=== PATIENT | male | born 1970 | race Caucasian/White ===

== ENCOUNTER → 2017-09-22 | Outpatient (CLI) | payer MEDICARE, OTHER | END | disposition home or self-care (01) | LOC: KCIC MRI 15:11 | DX: M48.061 Spinal stenosis, lumbar region without neurogenic claudication (principal); M51.36 Other intervertebral disc degeneration, lumbar region; M51.26 Other intervertebral disc displacement, lumbar region; M79.604 Pain in right leg | CPT/HCPCS: 72148 ==

== ENCOUNTER → 2018-11-13 | Outpatient (CLI) | payer MEDICARE, OTHER ==
[2018-10-19 11:45] VITALS: BP 121/71
[~2018-11-13] MED LIST: ALBU2.5V14 NEB; ALBU2.5V5 NEB; ALFU10TA PO; ASPI325T8 PO; BACL10TA PO; CYCL10TA2 PO; DICL50TA4 PO; DULO20CA PO; FLUT1DIS5 IH; FURO-68 PO; GABA600T7 PO; LISI-130 PO; METH454P2 PO; MONT10TA49 PO; NAPR-677 PO; OMEP20TA63 PO; OMEP40CA5 PO; OXYC10TA PO; OXYC15TA PO; POLY119P4 PO; SIMV20TA3 PO; SUCR1TAB35 PO; TIOT18CA IH; TRAZ-86 PO
--- NOTE | 2018-11-13 12:52 | RAD ---
MR#: [id number] Date of Study: 11/13/2018 Ordering Physician: TERRELL MUJICA, Referring Physician: TERRELL MUJICA, Tech: Hood Jaime MBA, RDMS, RVT, RDCS, RTR APPROVED REPORT Patient Location : OUT-PATIENT Indications venous insufficiency Findings Limited Kim scale images of the bilateral lower extremity SFJ are grossly unremarkable. The R GSV measures 6.7 mm and does not reflux The L GSV measures 7.5 mm and does not reflux. Bilateral lesser saphenous veins do not show any evidence of reflux. Critical Notification Critical Value: No <Conclusion> 1. No significant reflux in the bilateral greater and lesser saphenous veins Signed by : Cooper Mcmahan, Electronically Approved : 11/13/2018 12:52:18
== END | disposition home or self-care (01) ==
LOC: US 10:25
PROVIDERS: ATTEND Internal Medicine Cardiovascular Disease
DX: I87.2 Venous insufficiency (chronic) (peripheral) (principal)
CPT/HCPCS: 93970

== ENCOUNTER → 2019-07-17 | Outpatient (CLI) | payer MEDICARE, OTHER ==
[2018-10-19 11:45] VITALS: BP 121/71
[~2019-07-17] MED LIST changes: +OMEP40CA45 PO; -OMEP40CA5 PO; +SIMV20TA18 PO; -SIMV20TA3 PO; +TRAZ-123 PO; -TRAZ-86 PO; +ZOLPIDEM 5 MG TABLET. PO ONE
--- NOTE | 2019-07-18 15:56 | SLEEP ---
DATE OF STUDY: 07/17/2019 REFERRING PHYSICIAN: Arnold Sellers MD PRIMARY CARE PHYSICIAN: CAR Lara The patient is a 49-year-old who weighs 360 pounds with a BMI of 48. The patient underwent diagnostic sleep study performed at [facility]. During the night study, the patient spent 179 minutes in bed and slept for 88 minutes with a low sleep efficiency of 49%. Sleep latency was 40 minutes with an absent REM sleep. Sleep architecture showed increased stage 1 and stage 2 sleep, normal slow wave and absent REM sleep. During the night study, the patient had 3 obstructive apneas, no mixed or central apneas and 36 hypopneas. The patient's AHI was 27 per hour. No supine or REM sleep was observed. EKG monitoring revealed an average heart rate of 90 beats per minute. It was consistent with LVH. No clinically significant PLM seen. Nocturnal oximetry study revealed a mean oxygen saturation of 92% with the lowest of 85%. A 66% of time oxygen saturation remained between 80% and 89%. The patient met the criteria for CPAP, but the patient refused CPAP or BiPAP devices. IMPRESSION: 1. Moderate sleep apnea-hypopnea syndrome at an AHI of 27 per hour. Absence of REM sleep can underestimate the severity of sleep apnea. 2. Nocturnal hypoxia secondary to combination of sleep apnea and suspected hypoventilation. 3. No clinically significant periodic limb movements. RECOMMENDATIONS: 1. The patient met the criteria for CPAP initiation; however, the patient refused any form of CPAP or BiPAP. The patient can be desensitized with the use of positive pressure therapy and if willing to try again, another titration study can be rescheduled. 2. Weight loss is strongly advised. 3. Avoid CLEANER WINDOW depressants. 4. Cautioned regarding driving until symptoms of sleep apnea resolve with above recommendations. 5. If the patient refuses to use CPAP or BiPAP, then the patient would be eligible for nocturnal oxygen. TAZ BERRIOS MD DR: ALY/ella JOB#: [id number] / [id number]
== END | disposition home or self-care (01) ==
LOC: SLPLAB 19:00
PROVIDERS: ATTEND Internal Medicine Pulmonary Disease
DX: G47.33 Obstructive sleep apnea (adult) (pediatric) (principal); G47.34 Idiopathic sleep related nonobstructive alveolar hypoventilation
CPT/HCPCS: 95810

== ENCOUNTER → 2020-08-21 | Outpatient (CLI) | payer MEDICARE, OTHER ==
[2018-10-19 11:45] VITALS: BP 121/71
[~2020-08-21] MED LIST changes: -OXYC15TA PO; +OXYC15TA3 PO; -ZOLPIDEM 5 MG TABLET. PO ONE
== END ==
LOC: LAB 13:19
PROVIDERS: ATTEND Internal Medicine Gastroenterology
DX: Z01.812 Encounter for preprocedural laboratory examination (principal); K22.2 Esophageal obstruction; Z20.822 Contact with and (suspected) exposure to COVID-19
CPT/HCPCS: U0003

== ENCOUNTER → 2020-08-24 | Day surgery (SDC) | payer MEDICARE, OTHER ==
[~2020-08-24] MED LIST changes: +IV RINGERS,LACTATED 1000ML 1,000 ML IV SCH; +PROPOFOL 10 MG/ML (20ML) VIAL. IV ONE
[2020-08-24 14:28] VITALS: BP 127/58
--- NOTE | 2020-08-28 14:14 | PATHOLOGY ---
[facility] Accession Number: [id number] . 01 Material submitted: . colon - DISTAL TRANSVERSE COLON BIOPSY POLYP. Modifiers: distal, transverse . 01 Clinical history: . DYSPHAGIA, EPIGASTRIC PAIN EGD/COLONOSCOPY . 02 Diagnosis: Large bowel "distal transverse colon polyp, endoscopic biopsy: - Tubular adenoma; negative for high-grade dysplasia and malignancy. (MLK:pit; 08/26/2020) QTP 08/26/2020 1333 Local . 02 Electronically signed: . Virgen Randolph MD, Pathologist NPI- [id number] . 01 Gross description: . The specimen is received in formalin, labeled "Branden Waton, distal transverse biopsy". Received are two segments of pale moss tissue measuring 0.2 and 0.3 cm in maximum dimensions. The specimen is submitted entirely in cassette A1. ([facility]; 08/25/2020) QAC/QAC 08/25/2020 1738 Local . 02 Pathologist provided ICD-10: D12.3 . 02 CPT . 105718 Specimen Comment: A courtesy copy of this report has been sent to [phone] Specimen Comment: [id number] Specimen Comment: Report sent to / DR BETANCUR Performed at: 01 [facility] [address], [place], [place] [id number] MD Christophe Alvarado MD Phone: [phone] Performed at: [address] [facility] [address] [place], [place] [id number] MD Dontae Marr MD Phone: [phone]
== END | disposition home or self-care (01) ==
LOC: SURG 12:22
PROVIDERS: ATTEND Internal Medicine Gastroenterology
DX: Z12.11 Encounter for screening for malignant neoplasm of colon (principal); R13.10 Dysphagia, unspecified; D12.3 Benign neoplasm of transverse colon; K63.89 Other specified diseases of intestine; K64.0 First degree hemorrhoids; Z86.010 Personal history of colon polyps; K21.00 Gastro-esophageal reflux disease with esophagitis, without bleeding; I25.10 Atherosclerotic heart disease of native coronary artery without angina pectoris; I10 Essential (primary) hypertension; E78.00 Pure hypercholesterolemia, unspecified; J43.9 Emphysema, unspecified; E11.9 Type 2 diabetes mellitus without complications; E66.9 Obesity, unspecified; G47.30 Sleep apnea, unspecified; F41.9 Anxiety disorder, unspecified; M19.90 Unspecified osteoarthritis, unspecified site; F17.210 Nicotine dependence, cigarettes, uncomplicated; Z79.899 Other long term (current) drug therapy; Z79.82 Long term (current) use of aspirin; Z98.890 Other specified postprocedural states; Z88.0 Allergy status to penicillin; Z72.89 Other problems related to lifestyle
CPT/HCPCS: 43450; 45380; J2704

== ENCOUNTER → 2020-12-04 | Outpatient (CLI) | payer MEDICARE, OTHER ==
[2020-08-24 14:28] VITALS: BP 127/58
[~2020-12-04] MED LIST changes: +BUME1TAB3 PO; +CHOL500021 PO; +CYCL10TA19 PO; -CYCL10TA2 PO; +DEXL60CA2 PO; +EMPA25TA3 PO; -IV RINGERS,LACTATED 1000ML 1,000 ML IV SCH; -OMEP40CA45 PO; +OMEP40CA7 PO; +PIOG30TA41 PO; +POTA10TA12 PO; -PROPOFOL 10 MG/ML (20ML) VIAL. IV ONE; +SILD100T PO; +TEST200V3 IM
--- NOTE | 2020-12-04 19:10 | CARD ---
MR#: [id number] Date of Study: 12/04/2020 Ordering Physician: TERRELL MUJICA, Referring Physician: TERRELL MUJICA, Tech: Desiree Pham [facility] APPROVED REPORT EXAM: Two-dimensional and M-mode echocardiogram with Doppler and color Doppler. Other Information Quality : Technically LimitedHR: 102bpm Rhythm : NSRTechnically limited study due to body habitus. INDICATION Cardiac Disease: CAD RISK FACTORS Hypertension Obesity Hyperlipidemia Diabetes Smoking LEFT VENTRICLE The left ventricle is normal size. There is borderline to mild concentric left ventricular hypertroph y. The left ventricular systolic function is normal and the ejection fraction is within normal range. Estimated ejejction fraction 55-60%. There is normal LV segmental wall motion. Transmitral Doppler f low pattern is Grade I-abnormal relaxation pattern. RIGHT VENTRICLE The right ventricle is normal size. The right ventricle is mildly hypertrophied. The right ventricula r systolic function is normal. ATRIA The left atrium size is normal. The right atrium size is normal. The interatrial septum is intact wit h no evidence for an atrial septal defect or patent foramen ovale as noted on 2-D or Doppler imaging. AORTIC VALVE Not well visualized. Doppler and Color Flow revealed no significant aortic regurgitation. There is no significant aortic valvular stenosis. MITRAL VALVE The mitral valve is normal in structure and function. There is no evidence of mitral valve prolapse. There is no mitral valve stenosis. Doppler and Color Flow revealed no mitral valve regurgitation note d. TRICUSPID VALVE Not well visualized. Doppler and Color Flow revealed no tricuspid valve regurgitation noted. There is no tricuspid valve stenosis. PULMONIC VALVE Not well visualized. Doppler and Color Flow revealed no pulmonic valvular regurgitation. There is no pulmonic valvular stenosis. GREAT VESSELS The aortic root is normal in size. The ascending aorta is normal in size. Due to poor image quality, the IVC could not be assessed. PERICARDIAL EFFUSION There is no evidence of significant pericardial effusion. Critical Notification Critical Value: No <Conclusion> The left ventricular systolic function is normal and the ejection fraction is within normal range. E stimated ejejction fraction 55-60%. There is normal LV segmental wall motion. Technically difficult study. Signed by : Cooper Mcmahan, Electronically Approved : 12/04/2020 19:09:54
== END ==
LOC: ECHO 09:56
PROVIDERS: ATTEND Internal Medicine Cardiovascular Disease
DX: I51.7 Cardiomegaly (principal); I25.119 Atherosclerotic heart disease of native coronary artery with unspecified angina pectoris
CPT/HCPCS: 93306; C8929

== ENCOUNTER 2021-03-12 08:29 | Outpatient (CLI) | payer MEDICARE, OTHER ==
[2021-03-12] VITALS (12 sets, daily range): BP systolic 106–125; BP diastolic 56–77
[~2021-03-12] VITALS: Ht 185.4 cm; Wt 160.5 kg
[~2021-03-12 08:29] MED LIST changes: -BUME1TAB3 PO; -CHOL500021 PO; -CYCL10TA19 PO; +CYCL10TA2 PO; -DEXL60CA2 PO; -EMPA25TA3 PO; -PIOG30TA41 PO; -POTA10TA12 PO; -SILD100T PO; -TEST200V3 IM
[2021-03-12 09:09] LABS: HEMATOCRIT 50.8 % (39.0-53.0); HEMOGLOBIN 17.4 g/dL (13.0-17.5); RED BLOOD COUNT 5.83 x10^6/uL (4.30-5.70); RED CELL DISTRIBUTION WIDTH 14.5 % (11.5-14.5); WHITE BLOOD COUNT 8.3 x10^3/uL (4.0-11.0)
[2021-03-12 09:20] LABS: PROTHROMBIN TIME PATIENT 13.2 SEC (11.7-14.0)
[2021-03-12 09:23] LABS: CALCIUM 8.5 mg/dL (8.5-10.1); CREATININE 1.2 mg/dL (0.7-1.3); GFR 64.1; POTASSIUM 4.4 mmol/L (3.5-5.1)
[2021-03-12] MEDS ORDERED: LIDOCAINE 1% Multi-Dose 20 ML VIAL. ONE (09:28)
[2021-03-12] MEDS ORDERED: IODIXANOL 320 MG/ML 100 ML VIAL. ONE ×2 (09:28→10:15)
[2021-03-12] MEDS ORDERED: MIDAZOLAM HCL/PF 5 MG/5 ML VIAL. ONE (09:42)
[2021-03-12] MEDS ORDERED: fentaNYL PF VIAL 100 MCG/2 ML VIAL ONE (09:42)
[2021-03-12] MEDS ORDERED: PIOG30TA41 PO (09:53)
[2021-03-12] MEDS ORDERED: BUME1TAB3 PO (09:53)
[2021-03-12] MEDS ORDERED: POTA10TA12 PO (09:53)
[2021-03-12] MEDS ORDERED: SILD100T PO (09:53)
[2021-03-12] MEDS ORDERED: EMPA25TA PO (09:53)
[2021-03-12] MEDS ORDERED: TEST200V3 IM (09:53)
[2021-03-12] MEDS ORDERED: TRAZ-123 PO (09:53)
[2021-03-12] MEDS ORDERED: ALFU10TA PO (09:53)
[2021-03-12] MEDS ORDERED: DEXL60CA2 PO (09:53)
[2021-03-12] MEDS ORDERED: CHOL500021 PO (09:53)
[2021-03-12] MEDS ORDERED: LIDOCAINE 1% Multi-Dose 20 ML VIAL. INJ ONE (10:00)
[2021-03-12] MEDS ORDERED: MIDAZOLAM HCL/PF 5 MG/5 ML VIAL. IV ONE (10:00)
[2021-03-12] MEDS ORDERED: IODIXANOL 320 MG/ML 100 ML VIAL. IART ONE (10:00)
[2021-03-12] MEDS ORDERED: fentaNYL PF VIAL 100 MCG/2 ML VIAL IV ONE (10:00)
[2021-03-12] MEDS ORDERED: CONTRAST GIVEN. MC PRN (10:00)
[2021-03-12] MEDS ORDERED: diphenhydrAMINE 50 MG/ML VIAL ONE (10:23)
--- NOTE | 2021-03-12 10:33 | PDOC ---
MODERATE SEDATION ASSESSMENT RISKS/ALTERNATIVES Risks/Alternatives Risks and alternatives of this type of sedation and procedure discussed with: RISK/ALTERNATIVES: Patient H & P ON CHART H & P H & P on chart and reviewed for co-morbid conditions and appropriate labs. H&P ON CHART: Yes STATUS PREG STATUS ASSESSED: N/A MEDS/ALLERGIES REVIEWED Meds/Allergies Reviewed Medications and Allergies including time and route of recently administered narcotics and sedatives. MEDS/ALLERGIES REVIEWED: Yes ASA RATING ASA RATING: II AIRWAY ASSESSMENT Airway Assessment Airway patency, oral function limitations, presence of caps, crowns, dentures, partials, and ability to extend neck assessed. AIRWAY ASSESSMENT: Yes MALLAMPATI SCORE MALLAMPATI SCORE: II PRE-SEDATION ASSESSMENT PRE-SEDATION ASSESSMENT: Yes TERRELL MUJICA MD Mar 12, 2021 10:32
[2021-03-12] MEDS ORDERED: diphenhydrAMINE 50 MG/ML VIAL IVP ONE (10:45)
[2021-03-12] MEDS ORDERED: IV 1/2 NORMAL SALINE 1,000 ML IV SCH (10:45)
--- NOTE | 2021-03-12 10:48 | CARD ---
MR#: [id number] Date of Study: 03/12/2021 Ordering Physician: TERRELL MUJICA, Referring Physician: TERRELL MUJICA Tech: RT Iveth(R) APPROVED REPORT Technologist: Janet García RT(R) Nurse: Nikki Rm RN Procedure(s) performed: Right and left heart catheterization, selective coronary angiography and left ventriculography MODERATE SEDATION TIME: 45 MIN FLUORO TIME: 5.0 MIN DOSE: 71 GYCM2 CONTRAST: 123CC VISI INDICATION The indication(s) include : Refractory dyspnea on exertion and chest pain with typical features aamir rning for unstable angina. [facility] Clinical Frailty Scale [facility] Clinical Frailty Scale: Mildly Frail Heart Failure Heart Failure: Yes If Yes, Newly Diagnosed: No If Yes, HF Type: Diastolic If Yes, NYHA Class: Class II CASE TECHNIQUE IV conscious sedation was used throughout procedure with appropriate monitoring and was performed in the presence of a registered nurse who was an independent trained observer other than the physician p erforming the procedure. During this case, Fluoroscopy and low osmolar contrast were used for imaging . Specimen(s) Removed: No Estimated Blood loss: 20 cc's. PROCEDURE NARRATIVE After explaining the risk, benefits and alternative options, informed consent was obtained from patie nt. Patient was brought to the cardiac Meat [facility] and his right groin was prepped and draped in the us ual fashion. 20 cc of 2% lidocaine was infiltrated into the skin and subcutaneous tissues for local anesthesia. Arterial and venous accesses were obtained in the right common femoral artery and vein r espectively and 6 and 8 Syrian sheaths inserted. A 7.5 Syrian Curtice-Hailey catheter was then advanced u nder fluoroscopic guidance and intracardiac pressures, oxygen saturations and cardiac output by Lazaro method measured. Subsequently, 6 Syrian JL4 and 6 Syrian JR4 catheters were used to perform selectiv e angiography of the left and right coronary arteries. 6 Syrian pigtail catheter was used to perform left ventriculography. Hemostasis in the right groin was achieved using Angio-Seal. Patient tolera lele the procedure well. There were no immediate complications. FINDINGS A. RIGHT HEART CATHETERIZATION 1. Intracardiac pressures: Mean right atrial pressure 8 mmHg, right ventricular pressure 31/1 mmHg, pulmonary artery pressure 28/9 mmHg with mean PA pressure of 18 mmHg and mean pulmonary capillary wed ge pressure 16 mmHg. No pulmonary hypertension noted. 2. Oxygen saturations: Right atrium 75.9%, pulmonary artery 74.5%, femoral arterial sheath 95.3%. N o evidence of intracardiac shunt. 3. Cardiac output by Lazaro method 6.5 L/min. B. LEFT HEART CATHETERIZATION 1. Hemodynamics: Left ventricular end-diastolic pressure 12 mmHg. No pullback gradient across the a ortic valve. 2. Left ventriculography: Normal left ventricle systolic function with ejection fraction estimated a t 60%. No significant mitral regurgitation seen. 3. Coronary angiography: a. The left main coronary artery arose from the left sinus of Valsalva, gave rise to the left anteri or descending and left circumflex arteries and did not show any significant stenosis. b. The left anterior descending artery did not show any significant stenosis. c. The left circumflex artery did not show any significant stenosis. d. The right coronary artery was a large and dominant vessel arising from the right sinus of Valsalv a that did not show any significant stenosis. Conclusion 1. No significant coronary artery disease 2. Normal left ventricular systolic function with ejection fraction estimated at 60% 3. No pulmonary hypertension or intracardiac shunt Recommendations Regular exercise regimen and weight loss Signed by : Terrell Mujica, Electronically Approved : 03/12/2021 10:48:09
--- NOTE | 2021-03-12 13:24 | NUR ---
Discharge Note: SANDI CARREON Discharge instructions and discharge home medications reviewed with Patient and a copy given. All questions have been answered and understanding verbalized. The following instructions and handouts were given: groin site care,adult moderate sedation, smoking cessation Discontinued lines and drains: Peripheral IV intact. Patient discharged to Home or Self Care withSpousevia Wheelchair
== END 2021-03-12 13:29 | disposition home or self-care (01) ==
LOC: CCL 08:29
PROVIDERS: ATTEND Internal Medicine Cardiovascular Disease
DX: R06.09 Other forms of dyspnea (principal); I10 Essential (primary) hypertension; E78.00 Pure hypercholesterolemia, unspecified; J43.9 Emphysema, unspecified; E11.9 Type 2 diabetes mellitus without complications; E66.9 Obesity, unspecified; I25.110 Atherosclerotic heart disease of native coronary artery with unstable angina pectoris; K21.9 Gastro-esophageal reflux disease without esophagitis; G47.30 Sleep apnea, unspecified; F41.9 Anxiety disorder, unspecified; N40.0 Benign prostatic hyperplasia without lower urinary tract symptoms; M19.90 Unspecified osteoarthritis, unspecified site; F17.210 Nicotine dependence, cigarettes, uncomplicated; Z79.82 Long term (current) use of aspirin; Z79.84 Long term (current) use of oral hypoglycemic drugs; Z79.899 Other long term (current) drug therapy; Z98.890 Other specified postprocedural states; Z88.0 Allergy status to penicillin; Z88.8 Allergy status to other drugs, medicaments and biological substances; Z20.822 Contact with and (suspected) exposure to COVID-19
CPT/HCPCS: 36415; 80048; 85027; 85610; 87426; 93460; 99152; 99153; C1760; C1769; C1773; C1894; J1644; J2250; J3010; J3490; Q9967; G0269

== ENCOUNTER 2021-05-17 11:47 | Emergency (ER) | payer MEDICARE, OTHER ==
[2021-03-12 13:15] VITALS: BP 119/73
[~2021-05-17] VITALS: Ht 188 cm; Wt 161.3 kg
[~2021-05-17 11:47] MED LIST changes: +BUME1TAB3 PO; +CHOL500021 PO; +CYCL10TA19 PO; -CYCL10TA2 PO; +DEXL60CA2 PO; +EMPA25TA PO; +PIOG30TA41 PO; +POTA10TA12 PO; +SILD100T PO; +TEST200V3 IM
== END 2021-05-17 11:56 | disposition left against medical advice (07) ==
LOC: ER 11:47
DX: R10.30 Lower abdominal pain, unspecified (principal); Z53.21 Procedure and treatment not carried out due to patient leaving prior to being seen by health care provider

== ENCOUNTER → 2021-06-28 | Day surgery (SDC) | payer MEDICARE, OTHER ==
[~2021-06-28] VITALS: Ht 185.4 cm; Wt 154.4 kg
[~2021-06-28] MED LIST changes: +LIDOCAINE 2% PF 5 ML VIAL. ONE; +PROPOFOL 10 MG/ML (20ML) VIAL. IV ONE
[2021-06-28 12:11] VITALS: BP 129/73
--- NOTE | 2021-06-28 13:13 | PDOC4 ---
PROCEDURE Procedure EGD/dilation Indication: dysphagia Meds: per anesthesia Findings: E--healed, probably erosive at baseline, reflux at 40 cm. G--Normal. D--Normal to second portion. Dilated with 52F Lopez; no resistance. Nelson. well. IMP: Reflux esophagitis. REC: Continue PPI; instructed on better timing of dose. Resume diet, meds. F/u, re-dilate prn. FAITH VANESSA MD Jun 28, 2021 13:13
[2021-06-28 13:28] VITALS: BP 121/62
== END | disposition home or self-care (01) ==
LOC: ENDOS 11:29
PROVIDERS: ATTEND Internal Medicine Gastroenterology
DX: R13.10 Dysphagia, unspecified (principal); K21.00 Gastro-esophageal reflux disease with esophagitis, without bleeding; K31.89 Other diseases of stomach and duodenum; I25.10 Atherosclerotic heart disease of native coronary artery without angina pectoris; I10 Essential (primary) hypertension; E78.00 Pure hypercholesterolemia, unspecified; J43.9 Emphysema, unspecified; G47.30 Sleep apnea, unspecified; E66.9 Obesity, unspecified; E11.9 Type 2 diabetes mellitus without complications; N40.0 Benign prostatic hyperplasia without lower urinary tract symptoms; F41.9 Anxiety disorder, unspecified; F17.210 Nicotine dependence, cigarettes, uncomplicated; Z79.899 Other long term (current) drug therapy; Z98.890 Other specified postprocedural states; Z88.0 Allergy status to penicillin; Z88.8 Allergy status to other drugs, medicaments and biological substances; Z20.822 Contact with and (suspected) exposure to COVID-19
CPT/HCPCS: 43235; 43450; 87426; J2704